=== PATIENT | male | born 1990 | race Caucasian/White ===

== ENCOUNTER 2016-11-03 18:35 | Emergency (ER) | payer OTHER ==
[~2016-11-03] VITALS: Ht 182.9 cm; Wt 93.5 kg
[2016-11-03 18:55] VITALS: TEMP 36.9; Ht 182.9 cm; Wt 93.5 kg
--- NOTE | 2016-11-03 19:27 | DIAGNOSTIC IMAGING REPORT ---
CHEST ONE VIEW PORTABLE CLINICAL HISTORY: Chest pain dyspnea COMPARISON STUDY: No previous studies for comparison. FINDINGS: The bones soft tissues and hemidiaphragms are normal. The cardiomediastinal silhouette is normal. The lungs are clear. The pulmonary vasculature is normal. IMPRESSION: Negative chest. The above report was generated using voice recognition software. It may contain grammatical, syntax or spelling errors. Electronically signed by: Mikey Shaw M.D. 11/03/2016 7:25 PM Dictated Date/Time: 11/03/2016 7:25 PM
[2016-11-03 19:29] LABS: BASO % 0.3 %; BASO ABS # 0.02 K/uL (0-0.2); COMPLETE YES; EOS % 1.5 %; HEMATOCRIT 45.6 % (42-52); IG% 0.1 %; LYMPH % 45.3 %; LYMPH ABS # 3.58 K/uL (1.2-3.4); MEAN CORPUSCULAR HEMOGLOBIN 29.9 pg (25-34); MEAN PLATELET VOLUME 10.9 fL (7.4-10.4); MONO % 9.9 %; NEUT % 42.9 %; PLATELET COUNT 229 K/uL (130-400); RED BLOOD COUNT 5.18 M/uL (4.7-6.1)
[2016-11-03 19:48] LABS: BUN/CREATININE RATIO 12.6 (10-20); CALCIUM 9.2 mg/dl (8.5-10.1); CREATININE 1.1 mg/dl (0.60-1.40); MAGNESIUM 2.2 mg/dl (1.8-2.4)
[2016-11-03 19:58] LABS: ALB/GLOB RATIO 1.4 (0.9-2); THYROID STIMULATING HORMONE 1.03 uIu/ml (0.300-4.500)
[2016-11-03 20:27] LABS: LYME DISEASE AB IGG NEG (NEG); LYME DISEASE AB IGM NEG (NEG)
[2016-11-03 20:28] LABS: INR 1.1 (0.9-1.1); PROTHROMBIN TIME (PATIENT) 11.5 SECONDS (9.0-12.0)
[2016-11-03] MEDS ORDERED: GI COCKTAIL PO STA (20:44)
[2016-11-03] MEDS ORDERED: LIDOCAINE HCL 2% VISC SOLN 20 ML UDC ONE (20:46)
[2016-11-03] MEDS ORDERED: ALUMINUM/MAGNESIUM SUSP 30 ML UDC ONE (20:46)
--- NOTE | 2016-11-03 21:34 | EMERGENCY ROOM VISIT NOTE ---
History First contact with patient: 18:57 Chief Complaint: CHEST PAIN Stated Complaint: TIGHTNESS PRESSUE IN CHEST Nursing Triage Summary: Pt reports midsternal chest pain that started about 45 mins prior to arrival. Pt reports this has been happening on and off for the past few weeks. History of Present Illness The patient is a 25 year old male who presents to the Emergency Room via private vehicle coming by female with complaints of "tightness/pressure in chest ". The patient states that a few months ago he developed pain in the chest, and it appears to come and go. He states that most recently while at home around 6:30 PM he developed a dull pain in the chest, took aspirin and the pain persists. He states that it sometimes occurs after eating. The patient states that he had about screening, and his cholesterol was found to be high at 283. He states that the chest pain at this time is minimal rated as a 1/10. He is unsure if there is associated shortness of breath. He denies any history of medical problems. He denies any abdominal pain or history of blood clots. He denies any hormone use, or recent trauma or surgery. Review of Systems A complete 10-point Review of Systems was discussed with the patient, with pertinent positives and negatives listed in the History of Present Illness. All remaining Review of Systems questions can be considered negative unless otherwise specified. Past Medical/Surgical History High cholesterol Family History No pertinent Social History Smoking Status: Never Smoker Social History: He denies alcohol or tobacco use. Current/Historical Medications No Active Prescriptions or Reported Meds Allergies Coded Allergies: No Known Allergies (Unverified , 11/03/16) Physical Exam Vital Signs Date Time Temp Pulse Resp B/P (MAP) Pulse Ox O2 Delivery O2 Flow Rate FiO2 11/03/16 21:38 51 17 134/72 98 11/03/16 20:35 54 24 131/73 96 Room Air 11/03/16 20:06 50 11/03/16 19:55 57 11/03/16 19:20 Room Air 11/03/16 19:20 Room Air 11/03/16 18:55 36.9 73 20 154/102 98 Room Air Physical Exam VITAL SIGNS - Vital signs and nursing notes were reviewed. Patient is afebrile , hypertensive at 154/102, nontachypneic tachycardic and is saturating well on room air at 98%. GENERAL -25-year-old male appearing his stated age who is in no acute distress. Communicates well with provider and answers questions appropriately. SKIN - Without rashes. No petechial rashes. HEAD - NC/AT. EYES - PERRL with EOMI bilaterally. Sclera anicteric. Palpebral conjunctiva pink and moist with no injection noted. EARS - No deformities of external structures noted on gross examination bilaterally. No pain elicited with palpation of the tragus bilaterally. External auditory canals without discharge or otorrhea. Tympanic membranes pearly welch without retraction or bulging. No fluid or purulent material visualized behind the TM. Handle of malleus, umbo, cone of light, pars tensa/ flaccid all easily visualized. NOSE - Midline and without cyanosis. No epistaxis or purulent drainage noted. Septum midline without deviation or septal hematoma noted. MOUTH/OROPHARYNX - Without perioral cyanosis. Buccal mucosa pink and moist and without leukoplakia. Tongue midline with equal elevation of palate bilaterally. No tonsillar hypertrophy, erythema, or exudates noted. [] dentition noted. LUNGS - Chest wall symmetric without accessory muscle use, intercostals retractions, or central cyanosis. Normal vesicular breath sounds CTA B/L. No wheezes, rales, or rhonchi appreciated. CARDIAC - RRR with S1/S2. No murmur, rubs, or gallops appreciated. ABDOMEN - Abdominal contour without pulsations or visible masses. BS normoactive all four quadrants. No tenderness, palpable masses, hepatosplenomegaly, or ascites noted. EXTREMITIES - No clubbing or peripheral cyanosis. No pretibial edema present. + 5/5 strength noted in UE/LE bilaterally. NEUROLOGIC - Cranial nerves II through XII grossly intact. Sensory intact to light touch throughout. Medical Decision & Procedures ER Provider Diagnostic Interpretation: CHEST ONE VIEW PORTABLE CLINICAL HISTORY: Chest pain dyspnea COMPARISON STUDY: No previous studies for comparison. FINDINGS: The bones soft tissues and hemidiaphragms are normal. The cardiomediastinal silhouette is normal. The lungs are clear. The pulmonary vasculature is normal. IMPRESSION: Negative chest. The above report was generated using voice recognition software. It may contain grammatical, syntax or spelling errors. Electronically signed by: Mikey Shaw M.D. 11/03/2016 7:25 PM Dictated Date/Time: 11/03/2016 7:25 PM Laboratory Results 11/03/16 19:15 Red Blood Count 5.18, Mean Corpuscular Volume 88.0, Mean Corpuscular Hemoglobin 29.9, Mean Corpuscular Hemoglobin Concent 34.0, Mean Platelet Volume 10.9, Neutrophils (%) (Auto) 42.9, Lymphocytes (%) (Auto) 45.3, Monocytes (%) (Auto) 9.9, Eosinophils (%) (Auto) 1.5, Basophils (%) (Auto) 0.3, Neutrophils # (Auto) 3.39, Lymphocytes # (Auto) 3.58, Monocytes # (Auto) 0.78, Eosinophils # (Auto) 0.12, Basophils # (Auto) 0.02 11/03/16 19:15 Test 11/03/16 19:15 11/03/16 20:00 11/03/16 20:46 White Blood Count 7.90 K/uL (4.8-10.8) Red Blood Count 5.18 M/uL (4.7-6.1) Hemoglobin 15.5 g/dL (14.0-18.0) Hematocrit 45.6 % (42-52) Mean Corpuscular Volume 88.0 fL (80-100) Mean Corpuscular Hemoglobin 29.9 pg (25-34) Mean Corpuscular Hemoglobin Concent 34.0 g/dl (32-36) Platelet Count 229 K/uL (130-400) Mean Platelet Volume 10.9 fL (7.4-10.4) Neutrophils (%) (Auto) 42.9 % Lymphocytes (%) (Auto) 45.3 % Monocytes (%) (Auto) 9.9 % Eosinophils (%) (Auto) 1.5 % Basophils (%) (Auto) 0.3 % Neutrophils # (Auto) 3.39 K/uL (1.4-6.5) Lymphocytes # (Auto) 3.58 K/uL (1.2-3.4) Monocytes # (Auto) 0.78 K/uL (0.11-0.59) Eosinophils # (Auto) 0.12 K/uL (0-0.5) Basophils # (Auto) 0.02 K/uL (0-0.2) RDW Standard Deviation 40.0 fL (36.4-46.3) RDW Coefficient of Variation 12.5 % (11.5-14.5) Immature Granulocyte % (Auto) 0.1 % Immature Granulocyte # (Auto) 0.01 K/uL (0.00-0.02) Anion Gap 8.0 mmol/L (3-11) Est Creatinine Clear Calc Drug Dose 120.9 ml/min Estimated GFR () 106.8 Estimated GFR (Non- 92.2 BUN/Creatinine Ratio 12.6 (10-20) Calcium Level 9.2 mg/dl (8.5-10.1) Magnesium Level 2.2 mg/dl (1.8-2.4) Total Bilirubin 0.5 mg/dl (0.2-1) Aspartate Amino Transf (AST/SGOT) 16 U/L (15-37) Alanine Aminotransferase (ALT/SGPT) 26 U/L (12-78) Alkaline Phosphatase 49 U/L (45-117) Total Protein 8.0 gm/dl (6.4-8.2) Albumin 4.6 gm/dl (3.4-5.0) Globulin 3.4 gm/dl (2.5-4.0) Albumin/Globulin Ratio 1.4 (0.9-2) Lipase 108 U/L (73-393) Thyroid Stimulating Hormone (TSH) 1.030 uIu/ml (0.300-4.500) Lyme Disease IgG Antibody NEG (NEG) Lyme Disease IgM Antibody NEG (NEG) Prothrombin Time 11.5 SECONDS (9.0-12.0) Prothromb Time International Ratio 1.1 (0.9-1.1) Activated Partial Thromboplast Time 26.4 SECONDS (21.0-31.0) Partial Thromboplastin Ratio 1.0 Bedside Troponin I < 0.030 ng/ml (0-0.045) Medications Administered Medications (Trade) Dose Ordered Sig/Jacques Route Start Time Stop Time Status Last Admin Dose Admin Miscellaneous Medication (Gi Cocktail) 24 ml NOW STAT PO 11/03/16 20:44 11/03/16 20:46 DC 11/03/16 20:49 24 ML Medical Decision Patient was seen and evaluated as above. After obtaining a thorough history and physical examination IV access was initiated and the above workup was performed. Bedside EKG reveals sinus bradycardia, RSR prime. No previous for comparison. This was repeated and showed sinus rhythm with occasional PVCs. No evidence of ST segment elevation myocardial infarction at this time. Troponin initially was negative. Repeat was also negative. CBC reveals no leukocytosis or anemia. Coags unremarkable. Patient's metabolic workup is also unremarkable. Creatinine slightly high at 1.1 and he is to follow up with family doctor regarding this. Lipase and TSH are unremarkable. Patient this time is most likely experiencing reflux, it sounds as though most of the symptoms occur after eating. He was given a GI cocktail with resolution of his symptoms. He was encouraged to begin [id number] regimen of Zantac or similar medication. He is to follow-up with the family doctor, and felt comfortable establishing a family doctor by himself. He was educated upon worrisome symptoms in which to return, had questions as per discharge, and was discharged home in good condition. Patient case was discussed with my attending. To rule out PE, the patient fits the pulmonary embolism rule out criteria. In evaluation treatment this patient following differential diagnoses were entertained: ME, PE, GERD, among others. Impression Primary Impression: Chest wall pain Departure Information Dispostion Home / Self-Care Condition GOOD Prescriptions No Active Prescriptions or Reported Meds Referrals No Doctor, Assigned (PCP) Patient Instructions My [facility] Additional Instructions You have been treated in the Emergency Department your chest Pain. Laboratory results and imaging studies have ruled out any emergent causes for your chest pain which would warrant admission or surgery. As we discussed, I think that your most likely experiencing reflux of acid. For this reason, I recommend using one of the [id number] prevention medications such as Zantac. This can be purchased at most major pharmacies over -the-counter. Please take according to the label. For pain control, you can use the following [id number] medicines (if >12 yo): - Regular strength (325mg/tab) Tylenol (acetaminophen) 2 tabs every 4-6 hours as needed. Do not exceed 12 tablets in a 24 hour period. Avoid taking more than 4 grams (4000 mg) of Tylenol per day. This includes any other sources of acetaminophen you may take on a regular basis. - Regular strength (200 mg/tab) Advil (ibuprofen) 1-2 tabs every 4-6 hours as needed. Do not exceed a dose of 3200 mg per day. Drink plenty of water and stay well hydrated. As with any trip to the Emergency Department, you should follow-up with your Primary Care Provider from today's visit. Please try call and establish a visit , if you're not able to do so or would like help in establishing a family doctor please call [phone] and ask for a residential case manager. Return to the emergency department with any new/concerning symptoms. That you for your time.
[2016-11-03 21:38] VITALS: BP 134/72; PULSE 51; O2SAT 98
== END 2016-11-03 21:39 | disposition home or self-care (01) ==
LOC: C.EDB 18:37
DX: R07.89 Other chest pain (principal)